=== PATIENT | female | born 1995 | race Caucasian/White ===

== ENCOUNTER 2023-01-03 23:56 | Emergency (ER) | payer OTHER ==
[2023-01-04] MEDS ORDERED: TORAdol 30 mg Injection IV ONE (00:17)
[2023-01-04] MEDS ORDERED: Zofran 4 MG/2 ML VIAL IV ONE (00:17)
[2023-01-04] MEDS ORDERED: Sodium Chloride 0.9% 1000 ML 1,000 ML IV STA (00:17)
--- NOTE | 2023-01-04 00:20 | ERPHSYRPT ---
- History of Present Illness Time Seen by Provider: 01/04/23 00:05 Historian: patient Exam Limitations: no limitations Patient Subjective Stated Complaint: L lower abd pain that radiates to L flank, no fever, nausea Triage Nursing Assessment: pt ambulatory to bed by self, pt alert and oriented x3, pt c/o LLQ pain that radiates to the L flank since 1900, last BM was 2030 01/03/23, pt has vomited once, bowel sounds heard in all quadrants Physician History: 27-year-old female with history of IBS presented in the ER with chief complaint of left flank/left lower quadrant pain moderate to severe sharp nature without any significant aggravating or relieving factors with associated nausea but no vomiting. Patient has a bowel movement earlier today but is concerned about being constipated. Denies any vaginal bleeding or discharge. LMP 2 weeks ago. Denies any urinary complaints. Timing/Duration: hour(s) (5), gradual onset, worse Activities at Onset: rest Quality: sharpness Abdominal Pain Onset Location: LLQ, flank Severity of Pain-Max: severe Severity of Pain-Current: moderate Modifying Factors: Improves With: nothing Associated Symptoms: nausea Previous symptoms: no prior history Allergies/Adverse Reactions: No Known Drug Allergies Allergy (Verified 01/04/23 00:03) Hx Tetanus, Diphtheria Vaccination/Date Given: Yes Hx Influenza Vaccination/Date Given: No Hx Pneumococcal Vaccination/Date Given: No Immunizations Up to Date: Yes Travel Risk - International Travel Have you traveled outside of the country in past 3 weeks: No - Coronavirus Screening Are you exhibiting any of the following symptoms?: No Close contact with a COVID-19 positive Pt in past 14-21 Days: No - Vaccine Status Have you recieved a Covid-19 vaccination: No - Review of Systems Constitutional: No Symptoms Ears, Nose, & Throat: No Symptoms Respiratory: No Symptoms Cardiac: No Symptoms Abdominal/Gastrointestinal: Abdominal Pain, Nausea Genitourinary Symptoms: No Symptoms Musculoskeletal: No Symptoms Skin: No Symptoms Neurological: No Symptoms Endocrine: No Symptoms Hematologic/Lymphatic: No Symptoms - Past Medical History Pertinent Past Medical History: Yes Neurological History: No Pertinent History ENT History: No Pertinent History Cardiac History: No Pertinent History Respiratory History: No Pertinent History Endocrine Medical History: No Pertinent History Musculoskeletal History: No Pertinent History GI Medical History: Irritable Bowel History: No Pertinent History Psycho-Social History: No Pertinent History Female Reproductive Disorders: No Pertinent History - Past Surgical History Past Surgical History: No Neuro Surgical History: No Pertinent History Cardiac: No Pertinent History Respiratory: No Pertinent History Gastrointestinal: No Pertinent History Genitourinary: No Pertinent History Musculoskeletal: No Pertinent History Female Surgical History: No Pertinent History - Social History Smoking Status: Never smoker Exposure to second hand smoke: No Drug Use: none Patient Lives Alone: No - Female History Hx Last Menstrual Period: 12/21/22 Hx Now: No - Nursing Vital Signs Nursing Vital Signs: Initial Vital Signs Temperature 97.4 F 01/04/23 00:03 Pulse Rate 68 01/04/23 00:03 Respiratory Rate 16 01/04/23 00:03 Blood Pressure 164/101 01/04/23 00:03 O2 Sat by Pulse Oximetry 96 01/04/23 00:03 Pain Scale Pain Intensity 4 - Physical Exam General Appearance: no apparent distress, alert Eye Exam: PERRL/EOMI Ears, Nose, Throat Exam: normal ENT inspection Neck Exam: normal inspection, supple, full range of motion Respiratory Exam: normal breath sounds, lungs clear Cardiovascular Exam: regular rate/rhythm, normal heart sounds Gastrointestinal/Abdomen Exam: soft, normal bowel sounds, tenderness (Left flank/left lower quadrant), No rebound Extremity Exam: normal inspection, normal range of motion, pelvis stable Neurologic Exam: alert, oriented x 3, cooperative Skin Exam: normal color SpO2 Interpretation: normal SpO2: 96 O2 Delivery: Room Air Ordered Tests: Active Orders 24 hr Category Date Time Status IV Insertion STAT Care 01/04/23 00:17 Active NPO (ED) STAT Care 01/04/23 00:17 Active ABDOMEN AND PELVIS W/0 CONTRAS [CT] Stat Exams 01/04/23 00:17 Completed CBC W DIFF Stat Lab 01/04/23 00:29 Completed CMP Stat Lab 01/04/23 00:29 Completed HCG QUALITATIVE, SERUM Stat Lab 01/04/23 00:30 Completed LIPASE Stat Lab 01/04/23 00:29 Completed UA W/RFX UR CULTURE Stat Lab 01/04/23 02:33 Completed Medication Summary Discontinued Medications Generic Name Dose Route Start Last Admin Trade Name Freq PRN Reason Stop Dose Admin Hydrocodone Bitart/Acetaminophen 2 tab 01/04/23 02:48 01/04/23 02:52 Hydrocodone/Apap 5/325 1 Tab Tablet PO 01/04/23 02:49 2 tab SENT HOME W/ PATIENT ONE Administration Sodium Chloride 1,000 mls @ 999 mls/hr 01/04/23 00:17 01/04/23 02:28 Sodium Chloride 0.9% 1000 Ml IV 01/04/23 01:17 Infused .Q1H1M STA Infusion Sodium Chloride Confirm 01/04/23 00:53 Sodium Chloride 0.9% 1000 Ml Administered 01/04/23 00:54 Dose 1,000 mls @ ud .ROUTE .STK-MED ONE Ketorolac Tromethamine 30 mg 01/04/23 00:17 01/04/23 00:56 Ketorolac Tromethamine 30 Mg/Ml Inj IV 01/04/23 00:18 30 mg STAT ONE Administration Ketorolac Tromethamine Confirm 01/04/23 00:53 Ketorolac Tromethamine 30 Mg/Ml Inj Administered 01/04/23 00:54 Dose 30 mg .ROUTE .STK-MED ONE Levofloxacin 500 mg 01/04/23 02:48 01/04/23 02:52 Levofloxacin 250 Mg Tab PO 01/04/23 02:49 500 mg STAT ONE Administration Ondansetron HCl 4 mg 01/04/23 00:17 01/04/23 00:56 Ondansetron Hcl 4 Mg/2 Ml Vial IV 01/04/23 00:18 4 mg STAT ONE Administration Ondansetron HCl Confirm 01/04/23 00:53 Ondansetron Hcl 4 Mg/2 Ml Vial Administered 01/04/23 00:54 Dose 4 mg .ROUTE .STK-MED ONE Tamsulosin HCl 0.4 mg 01/04/23 02:42 01/04/23 02:48 Tamsulosin Hcl 0.4 Mg Cap PO 01/04/23 02:43 0.4 mg ONCE STA Administration Tamsulosin HCl Confirm 01/04/23 02:47 Tamsulosin Hcl 0.4 Mg Cap Administered 01/04/23 02:48 Dose 0.4 mg .ROUTE .STK-MED ONE Lab/Rad Data: Laboratory Result Diagrams 01/04/23 00:29 01/04/23 00:29 Laboratory Results 01/04/23 01/04/23 01/04/23 Range/Units 02:33 00:30 00:29 WBC (4.0-10.5) x10^3/uL RBC (4.1-5.4) x10^6/uL Hgb (12.0-16.0) g/dL Hct (35-47) % MCV (78-100) fL MCH (26-32) pg MCHC (32-36) g/dL RDW (11.5-14.0) % Plt Count (150-450) x10^3/uL MPV (7.5-11.0) fL Gran % (36.0-66.0) % Immature Gran % (Auto) (0.00-0.4) % Nucleat RBC Rel Count (0.00-0.1) % Eos # (Auto) (0-0.5) x10^3/uL Immature Gran # (Auto) (0.00-0.03) x10^3u/L Absolute Lymphs (auto) (1.0-4.6) x10^3/uL Absolute Monos (auto) (0.0-1.3) x10^3/uL Absolute Nucleated RBC (0.00-0.01) x10^3u/L Lymphocytes % (24.0-44.0) % Monocytes % (0.0-12.0) % Eosinophils % (0.00-5.0) % Basophils % (0.0-0.4) % Absolute Granulocytes (1.4-6.9) x10^3/uL Basophils # (0-0.4) x10^3/uL Sodium 138 (137-145) mmol/L Potassium 3.4 L (3.5-5.1) mmol/L Chloride 103 (98-107) mmol/L Carbon Dioxide 24 (22-30) mmol/L Anion Gap 14.7 (5-15) MEQ/L BUN 9 (7-17) mg/dL Creatinine 0.82 (0.52-1.04) mg/dL Estimated GFR > 60.0 ML/MIN Glucose 111 H (74-106) mg/dL Calcium 9.1 (8.4-10.2) mg/dL Total Bilirubin 1.30 (0.2-1.3) mg/dL AST 24 (14-36) U/L ALT 12 (0-35) U/L Alkaline Phosphatase 66 (38-126) U/L Serum Total Protein 7.5 (6.3-8.2) g/dL Albumin 4.3 (3.5-5.0) g/dL Lipase 42 (23-300) U/L Serum HCG, Qual NEGATIVE (NEGATIVE) Urine Color Yellow (Yellow) Urine Appearance Clear (Clear) Urine pH 6.0 (4.6-8.0) Ur Specific [place] 1.015 (1.005-1.030) Urine Protein Negative (Negative) Urine Glucose (UA) Negative (Negative) mg/dL Urine Ketones 15 A (Negative) Urine Blood Trace (Negative) Urine Nitrite Negative (Negative) Urine Bilirubin Negative (Negative) Urine Urobilinogen 0.2 (0.2) mg/dL Ur Leukocyte Esterase Negative (Negative) U Hyaline Cast (Auto) NONE SEEN (0-2) /LPF Urine Microscopic RBC 3-5 (0-5) /HPF Urine Microscopic WBC 0-2 (0-5) /HPF Ur Epithelial Cells Rare (None Seen) /HPF Urine Bacteria None Seen (None Seen) /HPF Urine Culture Reflexed NO (NO) 01/04/23 Range/Units 00:29 WBC 9.7 (4.0-10.5) x10^3/uL RBC 4.12 (4.1-5.4) x10^6/uL Hgb 13.1 (12.0-16.0) g/dL Hct 37.5 (35-47) % MCV 91.0 (78-100) fL MCH 31.8 (26-32) pg MCHC 34.9 (32-36) g/dL RDW 11.5 (11.5-14.0) % Plt Count 278 (150-450) x10^3/uL MPV 10.0 (7.5-11.0) fL Gran % 75.6 H (36.0-66.0) % Immature Gran % (Auto) 0.3 (0.00-0.4) % Nucleat RBC Rel Count 0.0 (0.00-0.1) % Eos # (Auto) 0.02 (0-0.5) x10^3/uL Immature Gran # (Auto) 0.03 (0.00-0.03) x10^3u/L Absolute Lymphs (auto) 1.80 (1.0-4.6) x10^3/uL Absolute Monos (auto) 0.48 (0.0-1.3) x10^3/uL Absolute Nucleated RBC 0.00 (0.00-0.01) x10^3u/L Lymphocytes % 18.6 L (24.0-44.0) % Monocytes % 5.0 (0.0-12.0) % Eosinophils % 0.2 (0.00-5.0) % Basophils % 0.3 (0.0-0.4) % Absolute Granulocytes 7.33 H (1.4-6.9) x10^3/uL Basophils # 0.03 (0-0.4) x10^3/uL Sodium (137-145) mmol/L Potassium (3.5-5.1) mmol/L Chloride (98-107) mmol/L Carbon Dioxide (22-30) mmol/L Anion Gap (5-15) MEQ/L BUN (7-17) mg/dL Creatinine (0.52-1.04) mg/dL Estimated GFR ML/MIN Glucose (74-106) mg/dL Calcium (8.4-10.2) mg/dL Total Bilirubin (0.2-1.3) mg/dL AST (14-36) U/L ALT (0-35) U/L Alkaline Phosphatase (38-126) U/L Serum Total Protein (6.3-8.2) g/dL Albumin (3.5-5.0) g/dL Lipase (23-300) U/L Serum HCG, Qual (NEGATIVE) Urine Color (Yellow) Urine Appearance (Clear) Urine pH (4.6-8.0) Ur Specific [place] (1.005-1.030) Urine Protein (Negative) Urine Glucose (UA) (Negative) mg/dL Urine Ketones (Negative) Urine Blood (Negative) Urine Nitrite (Negative) Urine Bilirubin (Negative) Urine Urobilinogen (0.2) mg/dL Ur Leukocyte Esterase (Negative) U Hyaline Cast (Auto) (0-2) /LPF Urine Microscopic RBC (0-5) /HPF Urine Microscopic WBC (0-5) /HPF Ur Epithelial Cells (None Seen) /HPF Urine Bacteria (None Seen) /HPF Urine Culture Reflexed (NO) - Progress Progress: improved, re-examined Progress Note: 01/04/23 02:49 27-year-old is evaluated for left flank pains since yesterday with associated nausea and no difficulty urination. She is given fluid and symptomatic treatment, on reevaluation she is feeling much better. She has normal white count, fairly unremarkable chemistries no, no UTI. CT abdomen pelvis showed 0.3 mm distal left ureteral stone with hydroureteronephrosis. She has couple of other nonobstructive stone as well. She is given Flomax. We will give her antibiotic and Flomax along with pain medication and outpatient urology follow- up recommended. Lab work, imaging findings and plan of care discussed with patient in detail who understand and agrees with it. Discussed signs symptoms of worsening needing return to ER which she seems understanding. Counseled pt/family regarding: lab results, diagnosis, need for follow-up, rad results Medical Desision Making - Diagnostic Testing Diagnostic test were ordered, analyzed, and reviewed by me: Yes Radiological Interpretation: Reviewed by me, Discussed w/ radiologist, Teleradiologist Report - Risk of complications The pt has a mod risk of morbidity or mortality based on: Need for prescription drug management, Need for minor surgical intervention in patient with know risk factors - Departure Departure Disposition: Home Clinical Impression: Ureterolithiasis, Hydroureteronephrosis Condition: Stable Critical Care Time: No Referrals: ARCADIO GARCES NP [Primary Care Provider] - Follow up with PCP 1 day ARUN ODOM [COURTESY STAFF] - Follow up/PCP as directed (Call tomorrow for appointment for reevaluation ) Instructions: Kidney Stones (DC) Additional Instructions: Take Tylenol/ibuprofen as needed for pain. Drink plenty of fluids. Follow-up with primary care/urology for reevaluation. Return to ER for intractable pain/vomiting/fever chills etc. Prescriptions: Ibuprofen 600 mg PO Q6HPRN PRN 10 Days #20 tablet PRN Reason: Pain Ciprofloxacin [Cipro 500 MG] 500 mg PO BID #14 tablet Tamsulosin HCl 0.4 mg [Flomax 0.4 MG] 0.4 mg PO DAILY #30 cap
[2023-01-04 00:32] LABS: Absolute Neutrophil Ct (ANC) 7.33 x10^3/uL (1.4-6.9); BASOPHIL % 0.3 % (0.0-0.4); Basophil (Absolute #) 0.03 x10^3/uL (0-0.4); Eosinophil % 0.2 % (0.00-5.0); Eosinophil (Absolute #) 0.02 x10^3/uL (0-0.5); Hematocrit 37.5 % (35-47); Hemoglobin 13.1 g/dL (12.0-16.0); IMMATURE GRAN # 0.03 x10^3u/L (0.00-0.03); IMMATURE GRAN % 0.3 % (0.00-0.4); Lymphocytes % 18.6 % (24.0-44.0); Mean Corpuscular Hemoglobin 31.8 pg (26-32); Mean Corpuscular Hgb Concent. 34.9 g/dL (32-36); Monocyte (Absolute #) 0.48 x10^3/uL (0.0-1.3); Neutrophil % 75.6 % (36.0-66.0); Platelet Count 278 x10^3/uL (150-450); Red Blood Count 4.12 x10^6/uL (4.1-5.4); Red Cell Distribution Width 11.5 % (11.5-14.0); White Blood Count 9.7 x10^3/uL (4.0-10.5)
[2023-01-04 00:45] LABS: ALBUMIN 4.3 g/dL (3.5-5.0); ALKALINE PHOSPHATASE 66 U/L (38-126); ANION GAP 14.7 MEQ/L (5-15); BLOOD UREA NITROGEN 9 mg/dL (7-17); CHLORIDE 103 mmol/L (98-107); Calcium 9.1 mg/dL (8.4-10.2); Carbon Dioxide 24 mmol/L (22-30); Creatinine 1 0.82 mg/dL (0.52-1.04); EST GLOMERULAR FILTRATION RATE > 60.0 ML/MIN; Glucose 111 mg/dL (74-106); LIPASE 42 U/L (23-300); Potassium 3.4 mmol/L (3.5-5.1); SGOT/AST 24 U/L (14-36); SGPT/ALT 12 U/L (0-35); SODIUM 138 mmol/L (137-145); Total Protein 7.5 g/dL (6.3-8.2)
[2023-01-04] MEDS ORDERED: TORAdol 30 mg Injection ONE (00:53)
[2023-01-04] MEDS ORDERED: Zofran 4 MG/2 ML VIAL ONE (00:53)
[2023-01-04] MEDS ORDERED: Sodium Chloride 0.9% 1000 ML 1,000 ML ONE (00:53)
[2023-01-04 01:27] LABS: HCG SERUM TEST NEGATIVE (NEGATIVE)
[2023-01-04] MEDS ORDERED: Flomax 0.4 MG PO STA (02:42)
--- NOTE | 2023-01-04 02:43 | XRAY ---
CLINICAL HISTORY:left flank /LLQ pain; COMPARISON:None; TECHNIQUES:Axial sections of CT abdomen and pelvis were obtained without administration of intravenous contrast. Reformatted coronal and sagittal images were acquired; FINDINGS: Parenchymal organ evaluation is suboptimal within the limitation of non-contrast study): The visualized portions of the lungs: There is 0.7 cm calcified nodule in the posterior segment of the left lower lobe. The visualized portion of the heart is normal in size without pericardial effusion. The abdominal aorta demonstrates no evidence of focal aneurysmal dilatation or dissection. The liver is normal in size and contours. There is normal parenchymal density. There is no focal lesion. There is no evidence of parenchymal infiltration. No intrahepatic ductal dilatation is seen. There is no evidence of hepatic and portal veins disorders. The gallbladder is normal. The common bile duct is normal in appearance. The spleen and pancreas are normal contours and attenuation characteristics without focal parenchymal lesions. The adrenals are normal in size and no mass lesion is detected. The right kidney is normal in size, shape, and configuration. There is no evidence of renal mass. No wilfred-nephric stranding or radio-opaque calculi are visualized. No hydronephrosis of the right kidney. The right ureter is normal in course and caliber, without any filling defect. The left kidney is normal in size, shape and configuration. There is no evidence of renal mass. No wilfred-nephric stranding is visualized. There is 0.2 cm non-obstructing stone in the upper calyx of the left kidney. There is grade I hydronephrosis of the left kidney. The left ureter is dilated up to the lower end, next to the urinary bladder. There is 0.3 cm stone in the lower end of the left ureter. The urinary bladder is empty. The uterus is normal for age. No adnexal mass was detected. The esophagogastric junction and stomach are unremarkable. The colon and small bowel loops are normal in appearance and without wall thickening or inflammatory change. No sign of appendicitis. No intraperitoneal free air or fluid is visualized. No pathologic lymphadenopathy is seen. There are no bone and soft tissue abnormalities. IMPRESSION: Grade I hydroureteronephrosis on the left kidney. 0.3 cm stone at the lower end of the left ureter. 0.2 cm stone in the upper calyx of the left kidney. non-obstructing. 0.7 cm calcified nodule in the included left lower lobe. [facility] ER was called at at 1:35 AM ROSE GROWER, 01/04/2023 and results were verbally communicated to Juni Campbell. Electronically Signed by: Chari Mejia MD. (01/04/2023 01:39:22 ROSE GROWER)
[2023-01-04 02:45] LABS: Appearance Clear (Clear); Bacteria None Seen /HPF (None Seen); Bilirubin Negative (Negative); Blood Trace (Negative); Epithelial Cells Rare /HPF (None Seen); Glucose, Urine Negative (Negative); Hyaline Casts NONE SEEN /LPF (0-2); Ketones 15 (Negative); Leukocyte Esterase Negative (Negative); Nitrite Negative (Negative); Protein,Urine Dip Negative (Negative); Specific Gravity 1.015 (1.005-1.030); Urobilinogen 0.2 mg/dL (0.2); WBC 0-2 /HPF (0-5)
[2023-01-04 02:46] VITALS: BP 140/88; PULSE 70
[2023-01-04] MEDS ORDERED: Flomax 0.4 MG ONE (02:47)
[2023-01-04 02:48] LABS: ADD URINE CULTURE? NO (NO)
[2023-01-04] MEDS ORDERED: NORCO 5/325 MG PO ONE (02:48)
[2023-01-04] MEDS ORDERED: Levofloxacin 250MG Tablet PO ONE (02:48)
[2023-01-04] MEDS ORDERED: NORCO 5/325 MG ONE (02:51)
[2023-01-04] MEDS ORDERED: Levofloxacin 250MG Tablet ONE (02:51)
[2023-01-04 02:52] VITALS: O2SAT 96
== END 2023-01-04 03:10 | disposition home or self-care (01) ==
LOC: ED 23:56
DX: N13.2 Hydronephrosis with renal and ureteral calculous obstruction (principal); R10.32 Left lower quadrant pain; R10.9 Unspecified abdominal pain; R11.0 Nausea; Z28.310 Unvaccinated for COVID-19
CPT/HCPCS: 36000; 36415; 74176; 80053; 81001; 83690; 84703; 85025; 96360; 96374; 99284; J1885; J2405; A9270-GY